=== PATIENT | female | born 1950 | race African-American/Black ===

== ENCOUNTER 2021-11-21 16:52 | Emergency (ER) | payer OTHER, MEDICAID ==
[~2021-11-21] VITALS: Ht 167.6 cm; Wt 113.0 kg
[~2021-11-21 16:52] MED LIST: AMLO5TAB88 PO; CARV25TA47 PO; CLOT15CR5 TP; FLUT16SP15; FURO-151 PO; SACU1TAB4 PO; SACU1TAB7 PO; TRAZ-252 PO
[2021-11-21 17:36] LABS: CHLORIDE 103 mEq/L (98-107)
[2021-11-21 17:47] LABS: BASOPHILS % 0.9 % (0.0-2.0); EOSINOPHILS % 2.9 % (0.0-5.0); HEMATOCRIT. 33.9 % (36.0-48.0); HEMOGLOBIN. 11.3 g/dL (12.0-16.0); LYMPHOCYTES % 21.3 % (20.0-50.0); MEAN CORPUSCULAR HEMOGLOBIN 29.3 pg (28.0-32.0); MEAN CORPUSCULAR VOLUME 87.8 fL (81.0-99.0); MEAN PLATELET VOLUME 9.1 fl (7.4-10.4); NEUTROPHILS % 69.9 % (40.0-76.0); PLATELET 162 x1000/uL (130-400); RED BLOOD CELL COUNT 3.86 mill/uL (4.2-5.4); RED CELL DISTRIBUTION WIDTH 15.4 % (11.6-14.6)
[2021-11-21] MEDS ORDERED: DIPHENHYDRAMINE 50MG/ML VIAL IV ONE (19:15)
[2021-11-21] MEDS ORDERED: PROCHLORPERAZINE 10MG/2ML VIAL IV ONE (19:15)
[2021-11-21] MEDS ORDERED: SODIUM CHLORIDE 0.9% 1,000 ML IV ONE (19:15)
[2021-11-21 19:24] LABS: CLARITY URINE CLOUDY (CLEAR); COLOR URINE YELLOW (YELLOW); KETONES URINE TRACE (NEGATIVE); LEUKOCYTE ESTERASE URINE NEGATIVE (NEGATIVE); NITRITE URINE NEGATIVE (NEGATIVE); OCCULT BLOOD URINE NEGATIVE (NEGATIVE); PROTEIN URINE TRACE (NEGATIVE); SPECIFIC GRAVITY URINE 1.017 (1.005-1.030); UROBILINOGEN URINE 0.2 E.U./dL (0.2-1.0)
[2021-11-21 20:51] VITALS: BP 159/71
== END 2021-11-21 21:32 | disposition home or self-care (01) ==
LOC: ER 16:52
DX: R51.9 Headache, unspecified (principal); M25.512 Pain in left shoulder; I11.0 Hypertensive heart disease with heart failure; I50.9 Heart failure, unspecified; Z95.0 Presence of cardiac pacemaker; Z79.899 Other long term (current) drug therapy; Z88.5 Allergy status to narcotic agent
CPT/HCPCS: 36415; 70450; 71045; 80053; 81003; 83880; 84484; 85025; 93005; 96361; 96374; 96375; 99285; J0780; J1200; J7030

== ENCOUNTER 2022-03-20 20:00 | Inpatient (IN) | payer OTHER, MEDICAID ==
[~2022-03-20] VITALS: Ht 172.7 cm; Wt 134.8 kg
[2022-03-20 21:18] LABS: BASOPHILS % 0.3 % (0.0-2.0); EOSINOPHILS % 2.3 % (0.0-5.0); HEMATOCRIT. 31.6 % (36.0-48.0); HEMOGLOBIN. 10.3 g/dL (12.0-16.0); LYMPHOCYTES % 14.8 % (20.0-50.0); MEAN CORPUSCULAR HEMOGLOBIN 29.6 pg (28.0-32.0); MEAN CORPUSCULAR VOLUME 90.9 fL (81.0-99.0); MEAN PLATELET VOLUME 8.2 fl (7.4-10.4); NEUTROPHILS % 77.6 % (40.0-76.0); PLATELET 181 x1000/uL (130-400); RED BLOOD CELL COUNT 3.47 mill/uL (4.2-5.4)
[2022-03-20 21:24] LABS: CHLORIDE 101 mEq/L (98-107)
[2022-03-20 21:54] LABS: INR 1.1; PROTHROMBIN TIME 11.8 sec (9.6-11.0)
[2022-03-21] MEDS ORDERED: ACETAMINOPHEN 325MG TABLET PO PRN (10:00)
[2022-03-21] MEDS ORDERED: ONDANSETRON HCL 4MG/2ML INJ IV PRN (10:00)
[2022-03-21] MEDS ORDERED: HYDROCODONE/ACETAMINOPHEN 5/325MG TABLET PO PRN (11:45)
[2022-03-21] MEDS: HYDRALAZINE 20MG/ML VIAL IV SCH ×2 (12:37→12:39)
[2022-03-21] MEDS ORDERED: NALOXONE HCL 0.4MG/ML VIAL IV PRN (14:45)
[2022-03-21 16:35] VITALS: BP 148/61
[2022-03-21] MEDS: POTASSIUM CHLORIDE 20MEQ TABLET SR PO SCH (18:22)
[2022-03-21 20:00] VITALS: BP 142/59
[2022-03-21] MEDS: AMLODIPINE 5MG TABLET PO SCH (20:21)
[2022-03-21] MEDS: FUROSEMIDE 40MG TABLET PO SCH (20:21)
[2022-03-21] MEDS: CARVEDILOL 12.5MG TABLET PO SCH (20:44)
[2022-03-22] VITALS: BP 153/61
[2022-03-22 04:00] VITALS: BP 148/64
[2022-03-22 07:48] VITALS: BP 148/56
[2022-03-22] MEDS: FUROSEMIDE 40MG TABLET PO SCH (08:31)
[2022-03-22] MEDS: CARVEDILOL 12.5MG TABLET PO SCH (08:31)
[2022-03-22] MEDS: AMLODIPINE 5MG TABLET PO SCH (08:31)
[2022-03-22] MEDS: POTASSIUM CHLORIDE 20MEQ TABLET SR PO SCH ×2 (08:31→16:04)
[2022-03-22] MEDS ORDERED: PNEUMOCOCCAL 23-VAL P-SAC VAC 0.5 ML IM ONE (09:00)
[2022-03-22 09:26] LABS: BASOPHILS % 0.4 % (0.0-2.0); EOSINOPHILS % 2.1 % (0.0-5.0); HEMATOCRIT. 33.5 % (36.0-48.0); HEMOGLOBIN. 10.9 g/dL (12.0-16.0); LYMPHOCYTES % 16.1 % (20.0-50.0); MEAN CORPUSCULAR HEMOGLOBIN 29.4 pg (28.0-32.0); MEAN CORPUSCULAR VOLUME 90.5 fL (81.0-99.0); MEAN PLATELET VOLUME 8.4 fl (7.4-10.4); NEUTROPHILS % 77.4 % (40.0-76.0); PLATELET 182 x1000/uL (130-400); RED CELL DISTRIBUTION WIDTH 14.1 % (11.6-14.6)
[2022-03-22 09:39] LABS: CHLORIDE 100 mEq/L (98-107)
[2022-03-22 11:28] VITALS: BP 145/53
[2022-03-22 14:16] VITALS: BP 145/53
[2022-03-22 15:49] VITALS: BP 150/50
== END 2022-03-22 18:35 | disposition home or self-care (01) | DRG 315 ==
LOC: ER 20:00 → MICUSO 23:11 → 8WST 03-21 15:53
PROVIDERS: ADMIT Internal Medicine; ATTEND Internal Medicine
PROC: 4B02XTZ Measurement of Cardiac Defibrillator, External Approach (ICD-10-PCS; principal; 2022-03-22)
DX: T82.897A Other specified complication of cardiac prosthetic devices, implants and grafts, initial encounter (principal); I42.0 Dilated cardiomyopathy; R06.02 Shortness of breath; I11.0 Hypertensive heart disease with heart failure; I25.10 Atherosclerotic heart disease of native coronary artery without angina pectoris; I50.9 Heart failure, unspecified; G47.33 Obstructive sleep apnea (adult) (pediatric); Z20.822 Contact with and (suspected) exposure to COVID-19; F41.8 Other specified anxiety disorders; D63.8 Anemia in other chronic diseases classified elsewhere; Y92.89 Other specified places as the place of occurrence of the external cause; Z95.810 Presence of automatic (implantable) cardiac defibrillator; Z88.8 Allergy status to other drugs, medicaments and biological substances; Z86.73 Personal history of transient ischemic attack (TIA), and cerebral infarction without residual deficits
CPT/HCPCS: 36415; 71045; 80048; 80053; 83735; 83880; 84484; 85025; 87426; 93005; 93306; 93970; 99285; J0360

== ENCOUNTER 2024-03-28 19:49 | Inpatient (IN) | payer BC, MEDICAID, MEDICARE ==
[~2024-03-28] VITALS: Ht 175.3 cm; Wt 158.3 kg
[2024-03-28 18:21] VITALS: RESP 31
[2024-03-28 21:26] LABS: BASOPHILS % 0.3 % (0.0-2.0); EOSINOPHILS % 0.4 % (0.0-5.0); HEMATOCRIT. 26.8 % (36.0-48.0); HEMOGLOBIN. 8.7 g/dL (12.0-16.0); LYMPHOCYTES % 9.3 % (20.0-50.0); MEAN CORPUSCULAR HEMOGLOBIN 28.3 pg (28.0-32.0); MEAN CORPUSCULAR HGB CONC 32.7 g/dL (31.0-37.0); MEAN CORPUSCULAR VOLUME 86.5 fL (81.0-99.0); MEAN PLATELET VOLUME 7.5 fl (7.4-10.4); MONOCYTES % 5.1 % (2.0-8.0); NEUTROPHILS % 84.9 % (40.0-76.0); PLATELET 231 x1000/uL (130-400); RED BLOOD CELL COUNT 3.09 mill/uL (4.2-5.4); RED CELL DISTRIBUTION WIDTH 15.5 % (11.6-14.6)
[2024-03-28 21:31] LABS: CHLORIDE 99 mEq/L (98-107); POTASSIUM 4.2 mEq/L (3.5-5.1); SODIUM 132 mEq/L (136-145)
[2024-03-28 21:32] LABS: CARBON DIOXIDE 29 mEq/L (21-32)
[2024-03-28 21:37] LABS: GLUCOSE 133 mg/dL (70-105); UREA NITROGEN BLOOD 20 mg/dL (9-23)
[2024-03-28 21:48] LABS: TROPONIN I HIGH SENSITIVITY 137 ng/L (3.0-34)
[2024-03-28 21:55] LABS: BG BASE EXCESS 1.9 mmol/L (-2.0-2.0); BG CARBOXYHEMOGLOBIN 0.4 % (0.5-1.5); BG DEOXYHEMOGLOBIN 0.6 % (0.0-5.0); BG FRACTION INSPIRED OXYGEN 100; BG HCO3 ACT 28.6 mmol/L (22.0-26.0); BG METHEMOGLOBIN 0.3 % (0.0-1.5); BG OXYGEN SATURATION 99.4 % (92.0-98.5); BG OXYHEMOGLOBIN 98.7 % (94.0-97.0); BG PCO2 56.3 mmHg (35.0-45.0); BG PH 7.324 (7.350-7.450); BG PO2 196.3 mmHg (75.0-100.0); BG SAMPLE SITE RIGHT RADIAL; BG TOTAL HEMOGLOBIN 9.8 g/dL (12.0-18.0); BG VENT MODE MASK - BIPAP
[2024-03-28 23:50] LABS: TROPONIN I HIGH SENSITIVITY 127 ng/L (3.0-34)
[2024-03-28] MEDS: FUROSEMIDE 40MG/4ML VIAL IVP NR (23:56)
[2024-03-29] VITALS (18 sets, daily range): BP systolic 124–169; BP diastolic 55–113; PULSE 64–105; RESP 12–33; TEMP 96.8–98; O2SAT 98
[2024-03-29 02:06] LABS: TROPONIN I HIGH SENSITIVITY 147 ng/L (3.0-34)
[2024-03-29] MEDS: METHYLPREDNISOLONE SOD SUCC 40MG/ML (ACT-O-VIAL) IV SCH (10:45)
[2024-03-29] MEDS: FUROSEMIDE 40MG/4ML VIAL IVP NR (11:15)
[2024-03-29] MEDS: IPRATROPIUM/ALBUTEROL 0.5-3(2.5)MG/3ML NEB HHN SCH (12:25)
[2024-03-29] MEDS: BUDESONIDE 0.5MG/2ML NEB HHN SCH (12:25)
[2024-03-29 12:26] LABS: BG BASE EXCESS 4.2 mmol/L (-2.0-2.0); BG CARBOXYHEMOGLOBIN 0.3 % (0.5-1.5); BG DEOXYHEMOGLOBIN 6.1 % (0.0-5.0); BG FRACTION INSPIRED OXYGEN 30; BG HCO3 ACT 30.9 mmol/L (22.0-26.0); BG METHEMOGLOBIN 0.4 % (0.0-1.5); BG OXYGEN SATURATION 93.9 % (92.0-98.5); BG OXYHEMOGLOBIN 93.2 % (94.0-97.0); BG PCO2 58.2 mmHg (35.0-45.0); BG PH 7.343 (7.350-7.450); BG PO2 75.4 mmHg (75.0-100.0); BG SAMPLE SITE RIGHT RADIAL; BG TOTAL HEMOGLOBIN 9.7 g/dL (12.0-18.0); BG VENT MODE MASK - BIPAP
[2024-03-29] MEDS: AMLODIPINE 5MG TABLET PO SCH (15:30)
[2024-03-30] VITALS (16 sets, daily range): BP systolic 94–195; BP diastolic 47–84; PULSE 75–90; RESP 18–32; TEMP 97.6–98.4; O2SAT 94–95
[2024-03-30] MEDS: FUROSEMIDE 40MG/4ML VIAL IVP SCH (15:30)
[2024-03-30] MEDS: LOSARTAN 25 MG TABLET PO SCH (17:23)
[2024-03-30 18:30] LABS: HEMOGLOBIN. 8.9 g/dL (12.0-16.0); MEAN CORPUSCULAR HEMOGLOBIN 28.4 pg (28.0-32.0); MEAN CORPUSCULAR HGB CONC 32.9 g/dL (31.0-37.0); MEAN CORPUSCULAR VOLUME 86.1 fL (81.0-99.0); MEAN PLATELET VOLUME 7.7 fl (7.4-10.4); PLATELET 242 x1000/uL (130-400); RED BLOOD CELL COUNT 3.14 mill/uL (4.2-5.4); RED CELL DISTRIBUTION WIDTH 15.6 % (11.6-14.6); WHITE BLOOD COUNT 10.8 x1000/uL (4.5-11.0)
[2024-03-30 18:39] LABS: CHLORIDE 101 mEq/L (98-107); POTASSIUM 4.3 mEq/L (3.5-5.1); SODIUM 138 mEq/L (136-145)
[2024-03-30 18:40] LABS: CALCIUM 8.9 mg/dL (8.7-10.4); CARBON DIOXIDE 34 mEq/L (21-32)
[2024-03-30 18:41] LABS: DIFFERENTIAL COMMENT 1
[2024-03-30 18:45] LABS: CREATININE 0.8 mg/dL (0.6-1.0); GLUCOSE 166 mg/dL (70-105); UREA NITROGEN BLOOD 20 mg/dL (9-23)
[2024-03-30 19:07] LABS: PLATELET ESTIMATE NORMAL
[2024-03-30] MEDS: CARVEDILOL 6.25 MG TABLET PO SCH (21:12)
[2024-03-31] VITALS (16 sets, daily range): BP systolic 116–168; BP diastolic 58–149; PULSE 68–85; RESP 15–22; TEMP 97–98.6; O2SAT 96–100
[2024-03-31] MEDS: HYDRALAZINE 20MG/ML VIAL IV PRN (05:31)
[2024-03-31 17:23] LABS: HEMATOCRIT. 29.6 % (36.0-48.0); HEMOGLOBIN. 9.5 g/dL (12.0-16.0); MEAN CORPUSCULAR HGB CONC 32.2 g/dL (31.0-37.0); MEAN CORPUSCULAR VOLUME 86.7 fL (81.0-99.0); MEAN PLATELET VOLUME 7.7 fl (7.4-10.4); PLATELET 238 x1000/uL (130-400); RED BLOOD CELL COUNT 3.41 mill/uL (4.2-5.4); RED CELL DISTRIBUTION WIDTH 16.1 % (11.6-14.6); WHITE BLOOD COUNT 13.3 x1000/uL (4.5-11.0)
[2024-03-31 17:35] LABS: CHLORIDE 98 mEq/L (98-107); SODIUM 138 mEq/L (136-145)
[2024-03-31 17:36] LABS: CALCIUM 8.8 mg/dL (8.7-10.4); CARBON DIOXIDE 35 mEq/L (21-32)
[2024-03-31 17:41] LABS: CREATININE 0.8 mg/dL (0.6-1.0); GLUCOSE 192 mg/dL (70-105); UREA NITROGEN BLOOD 25 mg/dL (9-23)
[2024-03-31 17:43] LABS: ALANINE AMINOTRANSFERASE 10 IU/L (10-49); ALBUMIN 3.9 g/dL (3.2-4.8); ASPARTATE AMINOTRANSFERASE 15 IU/L (<34); BILIRUBIN TOTAL 0.4 mg/dL (0.1-1.0)
[2024-03-31 17:44] LABS: PROTEIN TOTAL 7.2 g/dL (6.0-8.3)
[2024-03-31 17:48] LABS: DIFFERENTIAL COMMENT 1
[2024-03-31 17:51] LABS: ADD RBC MORPHOLOGY YES
[2024-03-31 20:40] LABS: PLATELET ESTIMATE NORMAL
[2024-04-01] VITALS (16 sets, daily range): BP systolic 105–173; BP diastolic 49–120; PULSE 65–90; RESP 11–24; TEMP 97–98; O2SAT 95–99
[2024-04-01] MEDS: ASPIRIN 81MG EC TABLET PO SCH (13:29)
[2024-04-01] MEDS: CARVEDILOL 6.25 MG TABLET PO NR (19:06)
[2024-04-01] MEDS: AMIODARONE 200MG TABLET PO NR (19:15)
[2024-04-01] MEDS: ATORVASTATIN CALCIUM 20MG TABLET PO SCH (21:37)
[2024-04-02] VITALS (14 sets, daily range): BP systolic 115–169; BP diastolic 56–88; PULSE 60–78; RESP 15–25; TEMP 97.2–97.9; O2SAT 98
[2024-04-02 12:03] LABS: HEMATOCRIT. 33.7 % (36.0-48.0); HEMOGLOBIN. 10.5 g/dL (12.0-16.0); MEAN CORPUSCULAR HEMOGLOBIN 27.3 pg (28.0-32.0); MEAN CORPUSCULAR HGB CONC 31.2 g/dL (31.0-37.0); MEAN CORPUSCULAR VOLUME 87.5 fL (81.0-99.0); PLATELET 218 x1000/uL (130-400); RED BLOOD CELL COUNT 3.86 mill/uL (4.2-5.4); RED CELL DISTRIBUTION WIDTH 16.4 % (11.6-14.6)
[2024-04-02 12:10] LABS: DIFFERENTIAL COMMENT 1
[2024-04-02 12:14] LABS: CHLORIDE 93 mEq/L (98-107); POTASSIUM 3.7 mEq/L (3.5-5.1); SODIUM 137 mEq/L (136-145)
[2024-04-02 12:17] LABS: CARBON DIOXIDE 35 mEq/L (21-32)
[2024-04-02 12:18] LABS: CALCIUM 8.8 mg/dL (8.7-10.4)
[2024-04-02 12:22] LABS: CREATININE 0.8 mg/dL (0.6-1.0)
[2024-04-02 12:23] LABS: ALANINE AMINOTRANSFERASE 12 IU/L (10-49); GLUCOSE 266 mg/dL (70-105); UREA NITROGEN BLOOD 26 mg/dL (9-23)
[2024-04-02 12:24] LABS: ALBUMIN 3.9 g/dL (3.2-4.8); ASPARTATE AMINOTRANSFERASE 14 IU/L (<34)
[2024-04-02 12:25] LABS: BILIRUBIN DIRECT 0.2 mg/dL (<=3.0); BILIRUBIN TOTAL 0.5 mg/dL (0.1-1.0); PROTEIN TOTAL 7.4 g/dL (6.0-8.3); T4 FREE 1.12 ng/dL (0.89-1.76); THYROID STIMULATING HORMONE 2.52 uIU/mL (0.55-4.78)
[2024-04-02 13:37] LABS: CLARITY URINE CLEAR (CLEAR); COLOR URINE YELLOW (YELLOW); GLUCOSE URINE NEGATIVE (NEGATIVE); KETONES URINE NEGATIVE (NEGATIVE); LEUKOCYTE ESTERASE URINE 2+ (NEGATIVE); NITRITE URINE NEGATIVE (NEGATIVE); OCCULT BLOOD URINE NEGATIVE (NEGATIVE); PROTEIN URINE NEGATIVE (NEGATIVE); SPECIFIC GRAVITY URINE 1.005 (1.005-1.030); UROBILINOGEN URINE 0.2 E.U./dL (0.2-1.0)
[2024-04-02 13:55] LABS: BACTERIA URINE 1+; RBC URINE 0-2 /hpf (0-2); SQUAMOUS EPITHELIAL CELL URINE 1+ /lpf (RARE/1+); YEAST URINE NONE SEEN
[2024-04-02 14:07] LABS: *AMPHETAMINES SCREEN URINE NEGATIVE (NEGATIVE); *BARBITURATES SCREEN URINE NEGATIVE (NEGATIVE); *BENZODIAZEPINES SCREEN URINE NEGATIVE (NEGATIVE); *COCAINE SCREEN URINE NEGATIVE (NEGATIVE); METHADONE URINE SCREEN NEGATIVE (NEGATIVE); OPIATES URINE SCREEN NEGATIVE (NEGATIVE); PHENCYCLIDINE URINE SCREEN NEGATIVE (NEGATIVE)
[2024-04-02 14:08] LABS: CANNABINOID URINE SCREEN NEGATIVE (NEGATIVE); ECSTASY MDMA SCREEN URINE NEGATIVE (NEGATIVE)
[2024-04-02 14:23] LABS: NUCLEATED RED BLOOD CELLS 1 /100 WBC
[2024-04-02 14:24] LABS: ANISOCYTOSIS 1+; PLATELET ESTIMATE NORMAL
[2024-04-02] MEDS: AMIODARONE 200MG TABLET PO SCH (21:13)
[2024-04-03] VITALS (14 sets, daily range): BP systolic 132–151; BP diastolic 50–123; PULSE 60–120; RESP 15–21; TEMP 96.8–98.5; O2SAT 97–100
[2024-04-04] VITALS (12 sets, daily range): BP systolic 115–168; BP diastolic 33–98; PULSE 66–140; RESP 16–27; TEMP 97.3–98.5
[2024-04-04] MEDS: NYSTATIN POWDER 15GM TOP SCH (12:48)
[2024-04-04] MEDS: CARVEDILOL 6.25 MG TABLET PO SCH (16:15)
[2024-04-04] MEDS: METHYLPREDNISOLONE SOD SUCC 40MG/ML (ACT-O-VIAL) IV SCH (16:16)
[2024-04-04] MEDS: CARVEDILOL 12.5MG TABLET PO SCH (20:26)
[2024-04-05] VITALS: BP 140/52; PULSE 93; RESP 17; TEMP 98
[2024-04-05 04:00] VITALS: BP 139/45; PULSE 132; RESP 15; TEMP 98.2
[2024-04-05 08:00] VITALS: BP 155/64; PULSE 66; RESP 17; TEMP 98
[2024-04-05 12:00] VITALS: BP 169/70; PULSE 64; RESP 19; TEMP 98.3
[2024-04-05 16:00] VITALS: BP 161/61; PULSE 71; RESP 17; TEMP 98.2
[2024-04-05 20:00] VITALS: BP 165/63; PULSE 73; RESP 20; TEMP 97.6
[2024-04-06] VITALS: BP 155/64; PULSE 66; RESP 13; TEMP 97.2
[2024-04-06 04:00] VITALS: BP 108/87; PULSE 97; RESP 23; TEMP 97.5
[2024-04-06 08:00] VITALS: BP 147/59; PULSE 81; RESP 21; TEMP 97
[2024-04-06 12:00] VITALS: BP 146/73; PULSE 123; RESP 17; TEMP 98.1
[2024-04-06] MEDS: METHYLPREDNISOLONE SOD SUCC 40MG/ML (ACT-O-VIAL) IV SCH (12:18)
[2024-04-06 16:00] VITALS: BP 133/99; PULSE 71; RESP 25; TEMP 97.1
[2024-04-06 18:15] LABS: DIFFERENTIAL COMMENT 1; HEMATOCRIT. 31.5 % (36.0-48.0); HEMOGLOBIN. 9.9 g/dL (12.0-16.0); MEAN CORPUSCULAR HGB CONC 31.3 g/dL (31.0-37.0); MEAN CORPUSCULAR VOLUME 86.3 fL (81.0-99.0); MEAN PLATELET VOLUME 9.3 fl (7.4-10.4); PLATELET 165 x1000/uL (130-400); RED BLOOD CELL COUNT 3.65 mill/uL (4.2-5.4); WHITE BLOOD COUNT 16.3 x1000/uL (4.5-11.0)
[2024-04-06 18:24] LABS: CHLORIDE 91 mEq/L (98-107); POTASSIUM 4.9 mEq/L (3.5-5.1); SODIUM 128 mEq/L (136-145)
[2024-04-06 18:25] LABS: CARBON DIOXIDE 36 mEq/L (21-32)
[2024-04-06 18:26] LABS: CALCIUM 8.4 mg/dL (8.7-10.4)
[2024-04-06 18:31] LABS: UREA NITROGEN BLOOD 32 mg/dL (9-23)
[2024-04-06 18:44] LABS: GLUCOSE 535 mg/dL (70-105)
[2024-04-06 18:48] LABS: ANISOCYTOSIS 1+; PLATELET ESTIMATE NORMAL
[2024-04-06] MEDS: INSULIN LISPRO 100 UNITS/ML SUBCUT NR ×2 (19:19→21:29)
[2024-04-06 19:59] VITALS: BP 162/72; PULSE 72; RESP 20
[2024-04-06] MEDS: INSULIN LISPRO 100 UNITS/ML SUBCUT SCH (21:00)
[2024-04-06] MEDS: BLOOD SUGAR DIAGNOSTIC STRIP TEST SCH (21:22)
[2024-04-07 00:43] VITALS: BP 156/55; PULSE 62; RESP 19; TEMP 97.1
[2024-04-07 04:00] VITALS: BP 16/97; PULSE 63; RESP 16; TEMP 97.4
[2024-04-07 08:11] VITALS: BP 122/59; PULSE 63; RESP 18; TEMP 98
[2024-04-07] MEDS: CARVEDILOL 12.5MG TABLET PO SCH (09:00)
[2024-04-07 11:47] VITALS: BP 116/59; PULSE 59; RESP 18; TEMP 97.7
[2024-04-07 16:32] VITALS: BP 153/60; PULSE 65; RESP 20; TEMP 97.2
[2024-04-07 20:00] VITALS: BP 150/49; PULSE 70; RESP 20; TEMP 98
[2024-04-08] VITALS: BP 149/55; PULSE 65; RESP 20; TEMP 97.5
[2024-04-08 04:00] VITALS: BP 143/43; PULSE 65; RESP 20; TEMP 97
[2024-04-08 08:00] VITALS: BP 139/43; PULSE 74; RESP 18; TEMP 97.2
[2024-04-08 12:00] VITALS: BP 154/45; PULSE 68; RESP 17; TEMP 96.4
[2024-04-08 14:48] VITALS: BP 154/45; PULSE 76; TEMP 97.5; O2SAT 96
== END 2024-04-08 16:40 | DRG 280 ==
LOC: ER 19:49 → 5EST 22:39 → EDBEDREQ 22:47 → EDBEDREQSVC 03-29 00:56 → 7WST 04-06 23:24
PROVIDERS: ADMIT Internal Medicine; ATTEND Internal Medicine
PROC: 5A09357 Assistance with Respiratory Ventilation, Less than 24 Consecutive Hours, Continuous Positive Airway Pressure (ICD-10-PCS; principal; 2024-03-28)
PROC: 5A09357 Assistance with Respiratory Ventilation, Less than 24 Consecutive Hours, Continuous Positive Airway Pressure (ICD-10-PCS; 2024-03-29)
PROC: 5A09357 Assistance with Respiratory Ventilation, Less than 24 Consecutive Hours, Continuous Positive Airway Pressure (ICD-10-PCS; 2024-03-30)
PROC: 4B02XTZ Measurement of Cardiac Defibrillator, External Approach (ICD-10-PCS; 2024-04-03)
DX: I11.0 Hypertensive heart disease with heart failure (principal); I50.23 Acute on chronic systolic (congestive) heart failure; I21.4 Non-ST elevation (NSTEMI) myocardial infarction; J96.92 Respiratory failure, unspecified with hypercapnia; J96.91 Respiratory failure, unspecified with hypoxia; J44.1 Chronic obstructive pulmonary disease with (acute) exacerbation; E66.2 Morbid (severe) obesity with alveolar hypoventilation; Z68.43 Body mass index [BMI] 50.0-59.9, adult; I47.20 Ventricular tachycardia, unspecified; I42.0 Dilated cardiomyopathy; D64.9 Anemia, unspecified; E78.5 Hyperlipidemia, unspecified; I25.10 Atherosclerotic heart disease of native coronary artery without angina pectoris; L30.4 Erythema intertrigo; E11.9 Type 2 diabetes mellitus without complications; Z95.810 Presence of automatic (implantable) cardiac defibrillator; Z88.5 Allergy status to narcotic agent; Z74.01 Bed confinement status
CPT/HCPCS: 36415; 36600; 71045; 80048; 80053; 80076; 80305; 81003; 82375; 82805; 82962; 83735; 83880; 84439; 84443; 84481; 84484; 85025; 93005; 93306; 94640; 94660; 97110; 97162; 97166; 97530; 97535; 99291; A6261; C1893; J0360; J1815; J1940; J2920; J7626